=== PATIENT | male | born 1945 | race Caucasian/White ===

== ENCOUNTER 2016-09-08 05:31 | Day surgery (SDC) | payer MEDICARE, BC ==
[2016-09-07 09:39] VITALS: BP 151/67
[~2016-09-08] VITALS: Ht 165.1 cm; Wt 60.0 kg
[~2016-09-08 05:31] MED LIST: AMIO200T42 PO; ASPI-496 PO; ASPI-621 PO; ATOR40TA78 PO; CEFD300C2 PO; CLOP75TA PO; LISI-167 PO; LISI5TAB7 PO; METO-93 PO; METO25TA35 PO; NICO1PAT4 TD; NICO1PAT5 TD; TAMS-11 PO
[2016-09-08] MEDS ORDERED: LACTATED RINGERS 1,000 ML IV SCH (06:15)
[2016-09-08 06:16] VITALS: BP 151/67
== END 2016-09-08 08:15 | disposition home or self-care (01) ==
LOC: OUT 05:31
PROVIDERS: ATTEND Urology
DX: Z02.9 Encounter for administrative examinations, unspecified (principal)

== ENCOUNTER 2016-09-15 11:03 | Inpatient (IN) | payer BC, MEDICARE ==
[~2016-09-15] VITALS: Ht 165.1 cm; Wt 61.0 kg
[2016-09-15] MEDS ORDERED: LACTATED RINGERS 1,000 ML IV SCH (12:13)
[2016-09-15 12:24] VITALS: BP 111/61
[2016-09-15] MEDS ORDERED: SULF1TAB24 PO (12:24)
[2016-09-15] MEDS ORDERED: FENTANYL PF 250 MCG/5ML ONE (14:51)
[2016-09-15] MEDS ORDERED: CEFAZOLIN PMX 2GM/100ML 100 ML IV STA (14:56)
[2016-09-15] MEDS ORDERED: GENTAMICIN PER PHARMACY MC PRN (15:00)
[2016-09-15] MEDS ORDERED: GENTAMICIN 140 MG in SODIUM CHLORIDE 0.9% 50 ML IV ONE (15:30)
[2016-09-15] MEDS ORDERED: EPHEDRINE 50 MG/ML, 1ML ONE (15:43)
[2016-09-15] MEDS ORDERED: GENTAMICIN 80 MG/2 ML ONE (15:43)
[2016-09-15] MEDS ORDERED: ONDANSETRON 2MG/ML, 2ML ONE (15:43)
[2016-09-15] MEDS ORDERED: PHENYLEPHRINE 10 MG/ML ONE (15:43)
[2016-09-15] MEDS ORDERED: PROPOFOL 10 MG/ML, 20ML ONE (15:43)
[2016-09-15] MEDS ORDERED: DEXAMETHASONE 4 MG/ML, 1ML ONE (15:43)
[2016-09-15] MEDS ORDERED: ACETAMINOPHEN 325 MG TABLET PO PRN (18:00)
[2016-09-15] MEDS ORDERED: HYDROmorphone 1 MG/ML, 1ML IV PRN (18:00)
[2016-09-15] MEDS ORDERED: LABETALOL 5MG/ML, 20ML IV PRN (18:00)
[2016-09-15] MEDS ORDERED: FENTANYL PF 100 MCG/2ML IV PRN (18:00)
[2016-09-15] MEDS ORDERED: PROMETHAZINE 25 MG/ML, 1ML IV PRN (18:00)
[2016-09-15] MEDS ORDERED: ONDANSETRON 2MG/ML, 2ML IVPush PRN (18:00)
[2016-09-15] MEDS ORDERED: hydrALAzine 20 MG/ML, 1ML IV PRN (18:00)
[2016-09-15] MEDS ORDERED: OXYcodone 5 MG/5 ML ORAL.SOL UDC PO PRN (18:00)
[2016-09-15 19:13] VITALS: BP 110/71
[2016-09-15] MEDS ORDERED: OXYcodone/APAP 5/325MG TABLET PO PRN (19:30)
[2016-09-15] MEDS ORDERED: OPIUM/BELLADONNA SUPP.RECT 16.2-60 MG PR PRN (19:30)
[2016-09-15] MEDS ORDERED: MORPHINE SULFATE 4 MG/ML, 1ML IV PRN (19:30)
[2016-09-15] MEDS: LACTATED RINGERS 1,000 ML IV SCH (21:53)
[2016-09-15] MEDS: ATORVASTATIN 40 MG TABLET PO SCH (21:53)
[2016-09-15] MEDS: SULFAMETH./TRIMETHOPRIM DS 800MG/160MG TABLET PO SCH (21:53)
[2016-09-15 23:07] VITALS: BP 118/66
[2016-09-16] MEDS: GENTAMICIN 80 MG in SODIUM CHLORIDE 0.9% 48 ML IV SCH ×2 (00:53→08:29)
[2016-09-16 04:07] VITALS: BP 108/54
[2016-09-16] MEDS: ONDANSETRON 2MG/ML, 2ML IV PRN ×2 (05:27→12:34)
[2016-09-16] MEDS: METOPROLOL SUCCINATE 50 MG TAB.ER.24H PO SCH (06:44)
[2016-09-16] MEDS: LACTATED RINGERS 1,000 ML IV SCH ×3 (06:45→22:14)
[2016-09-16 07:50] VITALS: BP 104/55
[2016-09-16] MEDS: SULFAMETH./TRIMETHOPRIM DS 800MG/160MG TABLET PO SCH ×2 (08:29→22:13)
[2016-09-16] MEDS: LISINOPRIL 5 MG TABLET PO SCH (08:30)
[2016-09-16] MEDS: AMIODARONE 200 MG TABLET PO SCH (08:30)
[2016-09-16] MEDS: IBUPROFEN 200 MG TABLET PO PRN ×2 (09:06→15:55)
[2016-09-16] MEDS ORDERED: OXYC-302 PO (13:24)
[2016-09-16 13:26] VITALS: BP 112/67
[2016-09-16 18:51] VITALS: BP 112/67
[2016-09-16] MEDS ORDERED: ONDANSETRON 2MG/ML, 2ML IV PRN (19:30)
[2016-09-16] MEDS: ATORVASTATIN 40 MG TABLET PO SCH (22:13)
[2016-09-17 02:16] VITALS: BP 93/59
[2016-09-17] MEDS: LACTATED RINGERS 1,000 ML IV SCH (03:30)
[2016-09-17] MEDS: METOPROLOL SUCCINATE 50 MG TAB.ER.24H PO SCH (06:00)
[2016-09-17 07:15] VITALS: BP 110/60
[2016-09-17] MEDS: SULFAMETH./TRIMETHOPRIM DS 800MG/160MG TABLET PO SCH (08:50)
[2016-09-17] MEDS: AMIODARONE 200 MG TABLET PO SCH (08:51)
[2016-09-17] MEDS: LISINOPRIL 5 MG TABLET PO SCH (08:51)
== END 2016-09-17 10:52 | disposition home or self-care (01) | DRG 714 ==
LOC: OUT 11:03 → 4NOR 18:39 → OUT 18:46 → 4NOR 18:46
PROVIDERS: ADMIT Urology; ATTEND Urology
PROC: 0VB08ZZ Excision of Prostate, Via Natural or Artificial Opening Endoscopic (ICD-10-PCS; 2016-09-15)
PROC: 0WCR8ZZ Extirpation of Matter from Genitourinary Tract, Via Natural or Artificial Opening Endoscopic (ICD-10-PCS; 2016-09-15)
PROC: 0T9B70Z Drainage of Bladder with Drainage Device, Via Natural or Artificial Opening (ICD-10-PCS; 2016-09-15)
PROC: 0W923ZZ Drainage of Face, Percutaneous Approach (ICD-10-PCS; principal; 2016-09-15 15:30)
DX: N40.1 Benign prostatic hyperplasia with lower urinary tract symptoms (principal); L72.3 Sebaceous cyst; I10 Essential (primary) hypertension; Z95.810 Presence of automatic (implantable) cardiac defibrillator; E78.5 Hyperlipidemia, unspecified; I25.10 Atherosclerotic heart disease of native coronary artery without angina pectoris; I25.5 Ischemic cardiomyopathy
CPT/HCPCS: 81001; 82360; 87015; 87070; 87075; 87077; 87086; 87102; 87116; 87186; 87205; 87206; 88300; 88305; J1100; J2405; J2704; J3010; J1580; J2370; J7120

== ENCOUNTER → 2017-11-12 | Outpatient (CLI) | payer MEDICARE, BC ==
[~2017-11-12] MED LIST changes: -CEFD300C2 PO; +CEFD300C37 PO; +NICO-486 TD; +NICO-487 TD; -NICO1PAT4 TD; -NICO1PAT5 TD; +OXYC-302 PO; +SULF1TAB24 PO
== END | disposition home or self-care (01) ==
LOC: ROC 15:00
PROVIDERS: ATTEND Radiology Radiation Oncology
DX: Z08 Encounter for follow-up examination after completed treatment for malignant neoplasm (principal); C61 Malignant neoplasm of prostate; F17.210 Nicotine dependence, cigarettes, uncomplicated
CPT/HCPCS: G0463

== ENCOUNTER → 2017-12-07 | Outpatient (CLI) | payer MEDICARE, BC ==
[~2017-12-07] MED LIST changes: +FENTANYL PF 100 MCG/2ML IVPush ONE; +LIDOCAINE/PF 1%, 30ML IV ONE; +MIDAZOLAM 1 MG/ML, 5ML IVPush ONE
== END | disposition home or self-care (01) ==
LOC: ROC 07:31
PROVIDERS: ATTEND Radiology Radiation Oncology
DX: Z51.0 Encounter for antineoplastic radiation therapy (principal); C61 Malignant neoplasm of prostate
CPT/HCPCS: 76942; 77332; 99156; A4648; J2250; J3010; J3490

== ENCOUNTER → 2018-03-28 | Outpatient (CLI) | payer MEDICARE, BC ==
[~2018-03-28] MED LIST changes: -FENTANYL PF 100 MCG/2ML IVPush ONE; -LIDOCAINE/PF 1%, 30ML IV ONE; -MIDAZOLAM 1 MG/ML, 5ML IVPush ONE
== END | disposition home or self-care (01) ==
LOC: ROC 08:36
PROVIDERS: ATTEND Radiology Radiation Oncology
DX: Z08 Encounter for follow-up examination after completed treatment for malignant neoplasm (principal); C61 Malignant neoplasm of prostate
CPT/HCPCS: G0463

== ENCOUNTER 2018-10-27 07:46 | Inpatient (IN) | payer BC, MEDICARE ==
[~2018-10-27] VITALS: Ht 167.6 cm; Wt 64.2 kg
[~2018-10-27 07:46] MED LIST changes: -ASPI-621 PO; +ASPI81TA45 PO; +BACITRACIN 50,000 UNIT ONE; +CLOP75TA52 PO; +HEPARIN 1,000 UNITS/ML, 30ML ONE; +HEPARIN 5,000 UNITS/ML, 1ML ONE; +LOSA25TA25 PO; +PROTAMINE SULFATE 10 MG/ML, 5ML ONE; +SPIR25TA5 PO; +SULF-16 PO; +THROMBIN 20,000 UNIT VIAL TP ONE
[2018-10-27] MEDS ORDERED: LACTATED RINGERS 1,000 ML IV SCH (08:35)
[2018-10-27 09:09] VITALS: BP 101/62
[2018-10-27] MEDS ORDERED: FUROSEMIDE 20 MG/2 ML ONE (09:21)
[2018-10-27] MEDS ORDERED: OXYcodone 5 MG/5 ML ORAL.SOL UDC PO PRN (09:30)
[2018-10-27] MEDS ORDERED: ONDANSETRON 2MG/ML, 2ML IV PRN (09:30)
[2018-10-27] MEDS ORDERED: ACETAMINOPHEN 325 MG TABLET PO PRN (09:30)
[2018-10-27] MEDS ORDERED: hydrALAzine 20 MG/ML, 1ML IV PRN (09:30)
[2018-10-27] MEDS ORDERED: LABETALOL 5MG/ML, 20ML IV PRN (09:30)
[2018-10-27] MEDS ORDERED: ONDANSETRON ODT 8 MG PO PRN (09:30)
[2018-10-27] MEDS ORDERED: PROMETHAZINE 25 MG/ML, 1ML IV PRN (09:30)
[2018-10-27] MEDS ORDERED: HEPARIN 1,000 UNITS/ML, 10ML ONE (09:44)
[2018-10-27] MEDS ORDERED: NITROGLYCERIN 5 MG/ML, 10ML ONE (09:46)
[2018-10-27] MEDS ORDERED: FENTANYL PF 250 MCG/5ML ONE (09:57)
[2018-10-27] MEDS ORDERED: PHENYLEPHRINE 10 MG/ML ONE (10:09)
[2018-10-27] MEDS ORDERED: SODIUM BICARB 8.4%, 50ML SYRINGE ONE (10:09)
[2018-10-27] MEDS ORDERED: EPHEDRINE 50 MG/ML, 1ML ONE (10:09)
[2018-10-27] MEDS ORDERED: NEOSTIGMINE 1 MG/ML, 10ML ONE (11:54)
[2018-10-27] MEDS ORDERED: DEXAMETHASONE 4 MG/ML, 1ML ONE (11:54)
[2018-10-27] MEDS ORDERED: ONDANSETRON 2MG/ML, 2ML ONE ×2 (11:54→15:31)
[2018-10-27] MEDS ORDERED: SUGAMMADEX 200 MG/2 ML IVPush ONE (11:54)
[2018-10-27] MEDS ORDERED: SUCCINYLCHOLINE 20 MG/ML, 10ML ONE (11:54)
[2018-10-27] MEDS ORDERED: ROCURONIUM 10MG/ML,5ML ONE (11:54)
[2018-10-27] MEDS ORDERED: PROPOFOL 10 MG/ML, 20ML ONE (11:54)
[2018-10-27] MEDS ORDERED: CEFAZOLIN 1,000 MG ONE (11:54)
[2018-10-27] MEDS ORDERED: GLYCOPYRROLATE 0.2MG/1ML, 5ML ONE (11:54)
[2018-10-27] MEDS ORDERED: FENTANYL PF 100 MCG/2ML ONE (12:36)
[2018-10-27] MEDS: FENTANYL PF 100 MCG/2ML IV PRN ×2 (12:40→12:54)
[2018-10-27 12:50] LABS: MEAN CORPUSCULAR HEMOGLOBIN 31.9 pg (27.5-34.5); MEAN CORPUSCULAR HGB CONC 32.9 g/dL (33.2-36.2); MEAN CORPUSCULAR VOLUME 97.1 fL (81-97); MEAN PLATELET VOLUME 7.8 fL (7.4-10.4); PLATELET COUNT 179 x10^3/uL (130-400); RED BLOOD COUNT 4.24 x10^6/uL (4.38-5.82); RED CELL DISTRIBUTION WIDTH 14.1 % (9.4-14.8)
[2018-10-27] MEDS ORDERED: HYDROmorphone 2 MG/ML, 1ML ONE (12:56)
[2018-10-27] MEDS: HYDROmorphone 2 MG/ML, 1ML IVPush PRN ×5 (12:58→13:33)
[2018-10-27 13:17] LABS: MD YES
[2018-10-27 13:19] LABS: BAND#(MANUAL) 2.02 x10^3/uL; BANDS%(MANUAL) 7 % (0-7); EOS#(MANUAL) 0.58 x10^3/uL (0.0-0.4); EOS% (MANUAL) 2 % (1-7); LYMPH#(MANUAL) 0.58 x10^3/uL (1-3.4); LYMPHS% (MANUAL) 2 % (22-44); MONOS#(MANUAL) 2.02 x10^3/uL (0.3-2.7); MONOS% (MANUAL) 7 % (2-9); SEG#(MANUAL) 23.62 x10^3/uL (1.8-6.8); SEGS% (MANUAL) 82 % (42-75)
[2018-10-27 13:20] LABS: <PLATELET ESTIMATE> ADEQUATE; <PLT MORPHOLOGY> NORMAL PLT MORPH; <RBC MORPHOLOGY> NORMAL
[2018-10-27] MEDS ORDERED: POTASSIUM CHLORIDE 20 MEQ in LACTATED RINGERS 1,000 ML IV SCH (14:30)
[2018-10-27] MEDS: morphine SULFATE 10 MG/ML, 1ML IV PRN ×3 (15:24→23:57)
[2018-10-27] MEDS: ONDANSETRON 2MG/ML, 2ML IVPush PRN (15:33)
[2018-10-27] MEDS: CEFAZOLIN PMX 1GM/50ML 50 ML IVPB SCH (18:26)
[2018-10-27 18:28] LABS: ALANINE AMINOTRANSFERASE 17 U/L (12-78); ANION GAP 8 mmol/L (5-15); CALCIUM 7.9 mg/dL (8.5-10.1); CHLORIDE 109 mmol/L (98-107); CREATININE 1.54 mg/dL (0.7-1.3)
[2018-10-27 18:29] LABS: ALKALINE PHOSPHATASE 73 U/L (45-117); BILIRUBIN,TOTAL 0.3 mg/dL (0.2-1.0); TOTAL PROTEIN 6.1 g/dL (6.4-8.2)
[2018-10-27] MEDS: ATORVASTATIN 40 MG TABLET PO SCH (20:42)
[2018-10-27] MEDS: SULFAMETH./TRIMETHOPRIM SS 400MG/80MG TABLET PO SCH (20:42)
[2018-10-27] MEDS ORDERED: PROCHLORPERAZINE 5 MG/ML, 2ML IVPush PRN (21:00)
[2018-10-27] MEDS: LACTATED RINGERS 1,000 ML IV SCH (21:13)
[2018-10-28] MEDS: CEFAZOLIN PMX 1GM/50ML 50 ML IVPB SCH (02:03)
[2018-10-28] MEDS: morphine SULFATE 10 MG/ML, 1ML IV PRN (02:31)
[2018-10-28 04:00] VITALS: BP 109/51
[2018-10-28] MEDS: LACTATED RINGERS 1,000 ML IV SCH ×3 (05:12→22:17)
[2018-10-28 05:21] LABS: MEAN CORPUSCULAR HEMOGLOBIN 31.7 pg (27.5-34.5); MEAN CORPUSCULAR HGB CONC 32.6 g/dL (33.2-36.2); MEAN CORPUSCULAR VOLUME 97.3 fL (81-97); MEAN PLATELET VOLUME 8.5 fL (7.4-10.4); PLATELET COUNT 194 x10^3/uL (130-400); RED BLOOD COUNT 4.29 x10^6/uL (4.38-5.82); RED CELL DISTRIBUTION WIDTH 13.6 % (9.4-14.8)
[2018-10-28] MEDS: ONDANSETRON 2MG/ML, 2ML IVPush PRN ×2 (05:25→14:39)
[2018-10-28 05:26] LABS: ANION GAP 4 mmol/L (5-15); CALCIUM 8.2 mg/dL (8.5-10.1); CHLORIDE 109 mmol/L (98-107)
[2018-10-28 05:27] LABS: CREATININE 1.38 mg/dL (0.7-1.3)
[2018-10-28 05:41] LABS: BASOPHILS # (AUTO) 0.31 x10^3/uL (0-0.1); BASOPHILS % (AUTO) 1 % (0-1); EOSINOPHILS # (AUTO) 0.04 x10^3/uL (0-0.4); EOSINOPHILS % (AUTO) 0 % (1-7); LYMPHOCYTES % (AUTO) 2 % (22-44); MD SCAN; MONOCYTES # (AUTO) 1.81 x10^3/uL (0.2-0.8); MONOCYTES % (AUTO) 7 % (2-9); NEUTROPHILS # (AUTO) 24.96 x10^3/uL (1.8-6.8); NEUTROPHILS % (AUTO) 90 % (42-75)
[2018-10-28] MEDS ORDERED: METOPROLOL SUCCINATE 50 MG TAB.ER.24H PO SCH (06:00)
[2018-10-28] MEDS ORDERED: HYDROmorphone 2 MG/ML, 1ML IVPush PRN (06:00)
[2018-10-28] MEDS: ENOXAPARIN 40 MG/0.4 ML SQ SCH (06:35)
[2018-10-28] MEDS ORDERED: LOSARTAN 25MG TABLET PO SCH (09:00)
[2018-10-28] MEDS: SPIRONOLACTONE 25 MG TABLET PO SCH (10:14)
[2018-10-28] MEDS: SULFAMETH./TRIMETHOPRIM SS 400MG/80MG TABLET PO SCH ×2 (10:14→22:17)
[2018-10-28] MEDS: AMIODARONE 200 MG TABLET PO SCH (10:15)
[2018-10-28] MEDS: HYDROmorphone 2 MG/ML, 1ML IVPush PRN ×3 (11:53→22:40)
[2018-10-28] MEDS ORDERED: PROCHLORPERAZINE 5 MG/ML, 2ML IVPush PRN (19:00)
[2018-10-28] MEDS: CALCIUM CARBONATE 500 MG TAB.CHEW PO SCH (19:51)
[2018-10-28 20:59] LABS: ANION GAP 7 mmol/L (5-15); CALCIUM 8.3 mg/dL (8.5-10.1); CHLORIDE 107 mmol/L (98-107); CREATININE 1.05 mg/dL (0.7-1.3)
[2018-10-28 21:03] LABS: TROPONIN I < 0.015 ng/mL (0.000-0.045)
[2018-10-28] MEDS ORDERED: CALCIUM CHLORIDE 10%, 10ML SYR IVPush ONE (22:00)
[2018-10-28] MEDS: ATORVASTATIN 40 MG TABLET PO SCH (22:17)
[2018-10-28 23:13] LABS: CULTURE INDICATED? YES; MICROSCOPIC INDICATED
[2018-10-28] MEDS ORDERED: CALCIUM GLUCONATE 4.6 MEQ in SODIUM CHLORIDE 0.9% 50 ML IV ONE (23:30)
[2018-10-29] MEDS: FAMOTIDINE 20 MG TABLET PO SCH ×3 (02:59→21:46)
[2018-10-29] MEDS: HYDROmorphone 2 MG/ML, 1ML IVPush PRN (03:07)
[2018-10-29 04:00] VITALS: BP 115/47
[2018-10-29 05:16] LABS: MEAN CORPUSCULAR HEMOGLOBIN 31.3 pg (27.5-34.5); MEAN CORPUSCULAR HGB CONC 31.9 g/dL (33.2-36.2); MEAN CORPUSCULAR VOLUME 98.2 fL (81-97); MEAN PLATELET VOLUME 8.2 fL (7.4-10.4); PLATELET COUNT 158 x10^3/uL (130-400); RED CELL DISTRIBUTION WIDTH 13.8 % (9.4-14.8)
[2018-10-29 05:27] LABS: ALANINE AMINOTRANSFERASE 14 U/L (12-78); ALBUMIN 2.6 g/dL (3.4-5.0); ANION GAP 4 mmol/L (5-15); CALCIUM 8.9 mg/dL (8.5-10.1); CHLORIDE 108 mmol/L (98-107); CREATININE 0.84 mg/dL (0.7-1.3)
[2018-10-29 05:35] LABS: ALKALINE PHOSPHATASE 63 U/L (45-117); BILIRUBIN,TOTAL 0.4 mg/dL (0.2-1.0); TOTAL PROTEIN 5.7 g/dL (6.4-8.2)
[2018-10-29 06:15] LABS: MD YES
[2018-10-29 06:19] LABS: LYMPH#(MANUAL) 2.38 x10^3/uL (1-3.4); LYMPHS% (MANUAL) 8 % (22-44); MONOS#(MANUAL) 1.79 x10^3/uL (0.3-2.7); MONOS% (MANUAL) 6 % (2-9); SEG#(MANUAL) 25.63 x10^3/uL (1.8-6.8); SEGS% (MANUAL) 86 % (42-75)
[2018-10-29 06:20] LABS: <RBC MORPHOLOGY> NORMAL
[2018-10-29 06:21] LABS: <PLATELET ESTIMATE> ADEQUATE; <PLT MORPHOLOGY> NORMAL PLT MORPH
[2018-10-29] MEDS: METOPROLOL SUCCINATE 50 MG TAB.ER.24H PO SCH (06:39)
[2018-10-29] MEDS: CALCIUM CARBONATE 500 MG TAB.CHEW PO SCH ×4 (06:40→21:49)
[2018-10-29] MEDS: ENOXAPARIN 40 MG/0.4 ML SQ SCH (06:40)
[2018-10-29] MEDS ORDERED: CALCIUM GLUCONATE IV ONE (07:00)
[2018-10-29] MEDS ORDERED: SODIUM CHLORIDE 0.9% IV ONE (07:00)
[2018-10-29] MEDS ORDERED: MAGNESIUM SULFATE PMX 2GM/50ML 50 ML IV ONE (07:00)
[2018-10-29] MEDS ORDERED: OXYcodone IR 5MG TABLET PO PRN (08:00)
[2018-10-29] MEDS: SPIRONOLACTONE 25 MG TABLET PO SCH (09:51)
[2018-10-29] MEDS: AMIODARONE 200 MG TABLET PO SCH (09:52)
[2018-10-29] MEDS: LOSARTAN 25MG TABLET PO SCH (09:52)
[2018-10-29] MEDS: SULFAMETH./TRIMETHOPRIM SS 400MG/80MG TABLET PO SCH ×2 (09:53→21:46)
[2018-10-29 13:28] VITALS: BP 120/63
[2018-10-29 19:12] VITALS: BP 128/60
[2018-10-29] MEDS: ATORVASTATIN 40 MG TABLET PO SCH (21:46)
[2018-10-30 00:18] VITALS: BP 131/61
[2018-10-30 02:41] VITALS: BP 114/51
[2018-10-30] MEDS: METOPROLOL SUCCINATE 50 MG TAB.ER.24H PO SCH (05:12)
[2018-10-30] MEDS: ENOXAPARIN 40 MG/0.4 ML SQ SCH (05:13)
[2018-10-30] MEDS: CALCIUM CARBONATE 500 MG TAB.CHEW PO SCH ×4 (05:18→22:10)
[2018-10-30 05:19] LABS: CHLORIDE 107 mmol/L (98-107)
[2018-10-30 05:24] LABS: ANION GAP 5 mmol/L (5-15); CALCIUM 8.7 mg/dL (8.5-10.1); CREATININE 0.88 mg/dL (0.7-1.3)
[2018-10-30 07:44] VITALS: BP 128/67
[2018-10-30] MEDS: SULFAMETH./TRIMETHOPRIM SS 400MG/80MG TABLET PO SCH ×2 (09:00→22:10)
[2018-10-30] MEDS: FAMOTIDINE 20 MG TABLET PO SCH ×2 (09:01→22:10)
[2018-10-30] MEDS: LOSARTAN 25MG TABLET PO SCH (09:01)
[2018-10-30] MEDS: SPIRONOLACTONE 25 MG TABLET PO SCH (09:01)
[2018-10-30] MEDS: AMIODARONE 200 MG TABLET PO SCH (09:01)
[2018-10-30] MEDS: PSYLLIUM PACKET PO SCH (11:10)
[2018-10-30 12:08] VITALS: BP 137/72
[2018-10-30 19:24] VITALS: BP 137/69
[2018-10-30] MEDS: ATORVASTATIN 40 MG TABLET PO SCH (22:10)
[2018-10-31 00:45] VITALS: BP 137/72
[2018-10-31 05:27] VITALS: BP 123/64
[2018-10-31] MEDS: CALCIUM CARBONATE 500 MG TAB.CHEW PO SCH ×3 (05:28→16:33)
[2018-10-31] MEDS: METOPROLOL SUCCINATE 50 MG TAB.ER.24H PO SCH (05:28)
[2018-10-31] MEDS: ENOXAPARIN 40 MG/0.4 ML SQ SCH (05:28)
[2018-10-31 06:59] VITALS: BP 133/72
[2018-10-31] MEDS ORDERED: MAGNESIUM HYDROXIDE 8%, 30ML UDC PO ONE (08:00)
[2018-10-31] MEDS: SULFAMETH./TRIMETHOPRIM SS 400MG/80MG TABLET PO SCH (08:46)
[2018-10-31] MEDS: LOSARTAN 25MG TABLET PO SCH (08:47)
[2018-10-31] MEDS: SPIRONOLACTONE 25 MG TABLET PO SCH (08:48)
[2018-10-31] MEDS: AMIODARONE 200 MG TABLET PO SCH (08:50)
[2018-10-31] MEDS: FAMOTIDINE 20 MG TABLET PO SCH (08:50)
[2018-10-31] MEDS: PSYLLIUM PACKET PO SCH (08:51)
[2018-10-31] MEDS ORDERED: TRAM50TA2 PO (09:22)
[2018-10-31 14:00] VITALS: BP 130/70
== END 2018-10-31 17:33 | disposition home or self-care (01) | DRG 268 ==
LOC: ORIP 07:46 → CCU 13:35 → 5SO 10-29 13:34
PROVIDERS: ADMIT Surgery; ATTEND Surgery
PROC: 02HV33Z Insertion of Infusion Device into Superior Vena Cava, Percutaneous Approach (ICD-10-PCS; 2018-10-27)
PROC: B548ZZA Ultrasonography of Superior Vena Cava, Guidance (ICD-10-PCS; 2018-10-27)
PROC: 03HY32Z Insertion of Monitoring Device into Upper Artery, Percutaneous Approach (ICD-10-PCS; 2018-10-27)
PROC: 04V03DZ Restriction of Abdominal Aorta with Intraluminal Device, Percutaneous Approach (ICD-10-PCS; principal; 2018-10-27 10:00)
PROC: 0T9B70Z Drainage of Bladder with Drainage Device, Via Natural or Artificial Opening (ICD-10-PCS; 2018-10-28)
DX: I71.4 Abdominal aortic aneurysm, without rupture (principal); G92 Toxic encephalopathy; N17.0 Acute kidney failure with tubular necrosis; D68.69 Other thrombophilia; I50.42 Chronic combined systolic (congestive) and diastolic (congestive) heart failure; I47.2 Ventricular tachycardia; N39.0 Urinary tract infection, site not specified; E78.5 Hyperlipidemia, unspecified; T42.75XA Adverse effect of unspecified antiepileptic and sedative-hypnotic drugs, initial encounter; Y92.89 Other specified places as the place of occurrence of the external cause; R73.9 Hyperglycemia, unspecified; D63.8 Anemia in other chronic diseases classified elsewhere; F17.210 Nicotine dependence, cigarettes, uncomplicated; I11.0 Hypertensive heart disease with heart failure; Z82.49 Family history of ischemic heart disease and other diseases of the circulatory system; I25.10 Atherosclerotic heart disease of native coronary artery without angina pectoris; I25.5 Ischemic cardiomyopathy; I48.2 Chronic atrial fibrillation; J44.9 Chronic obstructive pulmonary disease, unspecified; N40.0 Benign prostatic hyperplasia without lower urinary tract symptoms; Z86.79 Personal history of other diseases of the circulatory system; Z95.810 Presence of automatic (implantable) cardiac defibrillator; Z95.5 Presence of coronary angioplasty implant and graft; Z88.6 Allergy status to analgesic agent
CPT/HCPCS: 36415; 71045; 80048; 80053; 81001; 82040; 82330; 83735; 83970; 84100; 84132; 84484; 85025; 86850; 86900; 86923; 87040; 87081; 87086; 87106; 93005; G0378; J0610; J0690; J1100; J1170; J1644; J1650; J2405; J2704; J2710; J2720; J3010; J3480; C1768; J0330; J0780; J1940; J2270; J2370; J3475; J7120

== ENCOUNTER 2019-01-16 12:03 | Day surgery (SDC) | payer BC, MEDICARE ==
[~2019-01-16] VITALS: Ht 167.6 cm; Wt 56.3 kg
[2019-01-16 13:42] VITALS: BP 102/66
== END 2019-01-16 19:14 | disposition home or self-care (01) ==
LOC: OUT 12:03 → 4NOR 18:00 → OUT 19:14
PROVIDERS: ATTEND Urology
DX: N30.00 Acute cystitis without hematuria (principal); N30.20 Other chronic cystitis without hematuria; N32.3 Diverticulum of bladder; I11.0 Hypertensive heart disease with heart failure; I50.9 Heart failure, unspecified; I25.10 Atherosclerotic heart disease of native coronary artery without angina pectoris; I25.5 Ischemic cardiomyopathy; J44.9 Chronic obstructive pulmonary disease, unspecified; I48.2 Chronic atrial fibrillation; Z85.46 Personal history of malignant neoplasm of prostate; Z92.3 Personal history of irradiation; Z95.810 Presence of automatic (implantable) cardiac defibrillator
CPT/HCPCS: 52234; 88307; J0330; J0690; J1100; J2405; J2704; J3010; J7120; G0378; J2710

== ENCOUNTER 2019-10-14 12:35 | Inpatient (IN) | payer BC, MEDICARE ==
[~2019-10-14] VITALS: Ht 167.6 cm; Wt 62.0 kg
[~2019-10-14 12:35] MED LIST changes: -BACITRACIN 50,000 UNIT ONE; -HEPARIN 1,000 UNITS/ML, 30ML ONE; -HEPARIN 5,000 UNITS/ML, 1ML ONE; -PROTAMINE SULFATE 10 MG/ML, 5ML ONE; -THROMBIN 20,000 UNIT VIAL TP ONE; +TRAM50TA2 PO
--- NOTE | 2019-10-14 12:55 | NUR ---
THIS IS A 74 YO M BIB EMS FOR WITNESSED SYNCOPAL EPISODE WHILE CUTTING DOWN TREE IN [place]. PT STATES HE LANDED ON DIRT, DOES NOT KNOW IF HE HIT HIS HEAD. PTS PACEMAKER FIRED FOR THE FIRST TIME SINCE BEING PLACED IN 2016. HX MIX2, AAA, HTN. PTS BP EQUAL BILATERALLY. VSS, RESP EVEN AND UNLABORED, NADN. PT RESTING ON fitogramRNEY W/ CALL LIGHT IN REACH AND SIDE RAILS UPX2. PT CONNECTED TO MONITORING.
--- NOTE | 2019-10-14 13:24 | NUR ---
DERIAN POE IN ROOM FOR [facility] INTEROGATION.
[2019-10-14] MEDS ORDERED: SODIUM CHLORIDE FLUSH 10ML SYR IVF ONE (13:30)
--- NOTE | 2019-10-14 13:34 | NUR ---
MED REC DONE.
--- NOTE | 2019-10-14 13:41 | NUR ---
ACCORDING TO [facility] REPORT, ON OCTOBER 13 @ 0933 PT HAD EPISODE OF VT WHICH HE RECEIVED ATP AND 36J, @ 0934 PT WENT INTO [facility] AND RECEIVED ATP AND ANOTHER 36J.
[2019-10-14 13:43] LABS: BASOPHILS # (AUTO) 0.03 x10^3/uL (0-0.1); BASOPHILS % (AUTO) 0 % (0-1); EOSINOPHILS # (AUTO) 0.06 x10^3/uL (0-0.4); EOSINOPHILS % (AUTO) 1 % (1-7); LYMPHOCYTES % (AUTO) 4 % (22-44); MD NO; MEAN CORPUSCULAR HEMOGLOBIN 31.7 pg (27.5-34.5); MEAN CORPUSCULAR VOLUME 95.9 fL (81-97); MEAN PLATELET VOLUME 8.4 fL (7.4-10.4); MONOCYTES # (AUTO) 0.34 x10^3/uL (0.2-0.8); MONOCYTES % (AUTO) 3 % (2-9); NEUTROPHILS # (AUTO) 11.69 x10^3/uL (1.8-6.8); NEUTROPHILS % (AUTO) 93 % (42-75); PLATELET COUNT 180 x10^3/uL (130-400); RED BLOOD COUNT 4.69 x10^6/uL (4.38-5.82); RED CELL DISTRIBUTION WIDTH 13.9 % (9.4-14.8)
[2019-10-14 13:53] LABS: ALANINE AMINOTRANSFERASE 18 U/L (12-78); ANION GAP 5 mmol/L (5-15); CALCIUM 9.2 mg/dL (8.5-10.1); CHLORIDE 107 mmol/L (98-107); CREATININE 1.31 mg/dL (0.7-1.3)
[2019-10-14 13:57] LABS: ALKALINE PHOSPHATASE 82 U/L (45-117); BILIRUBIN,TOTAL 0.7 mg/dL (0.2-1.0); TOTAL PROTEIN 7.5 g/dL (6.4-8.2)
[2019-10-14] MEDS ORDERED: FILTER 0.22 MICRON FOR AMIODARONE IV PRN (14:00)
[2019-10-14] MEDS ORDERED: AMIODARONE 150 MG in DEXTROSE 5% 100 ML IV ONE (14:00)
--- NOTE | 2019-10-14 14:36 | NUR ---
REPORT GIVEN TO RACHEL POE. PT IS READY FOR TRANSPORT AT THIS TIME.
--- NOTE | 2019-10-14 14:51 | NUR ---
ADMITTING PROVIDER IN ROOM FOR EVAL.
[2019-10-14 15:23] VITALS: BP 106/60
[2019-10-14] MEDS: HEPARIN 5,000 UNITS/ML, 1ML SQ SCH ×2 (15:30→23:11)
[2019-10-14] MEDS ORDERED: ONDANSETRON 2MG/ML, 2ML IVPush PRN (15:30)
[2019-10-14] MEDS ORDERED: DOCUSATE 100 MG CAPSULE PO PRN (15:30)
[2019-10-14] MEDS ORDERED: POLYETHYLENE GLYCOL 17 GM PACKET PO PRN (15:30)
[2019-10-14 16:47] LABS: MICROSCOPIC INDICATED
[2019-10-14 20:28] VITALS: BP 109/62
[2019-10-14] MEDS: ATORVASTATIN 40 MG TABLET PO SCH (20:34)
[2019-10-14] MEDS: ONDANSETRON ODT 4 MG PO PRN (23:10)
[2019-10-15 00:34] VITALS: BP 109/68
[2019-10-15 06:08] LABS: ANION GAP 6 mmol/L (5-15); CALCIUM 8.6 mg/dL (8.5-10.1); CHLORIDE 108 mmol/L (98-107); CREATININE 1.26 mg/dL (0.7-1.3)
[2019-10-15 06:22] LABS: BASOPHILS # (AUTO) 0.06 x10^3/uL (0-0.1); BASOPHILS % (AUTO) 1 % (0-1); EOSINOPHILS # (AUTO) 0.21 x10^3/uL (0-0.4); EOSINOPHILS % (AUTO) 2 % (1-7); LYMPHOCYTES # (AUTO) 1.41 x10^3/uL (1-3.4); LYMPHOCYTES % (AUTO) 14 % (22-44); MD NO; MEAN CORPUSCULAR HEMOGLOBIN 31.5 pg (27.5-34.5); MEAN CORPUSCULAR HGB CONC 32.8 g/dL (33.2-36.2); MEAN CORPUSCULAR VOLUME 95.9 fL (81-97); MEAN PLATELET VOLUME 8.8 fL (7.4-10.4); MONOCYTES # (AUTO) 0.98 x10^3/uL (0.2-0.8); MONOCYTES % (AUTO) 10 % (2-9); NEUTROPHILS # (AUTO) 7.15 x10^3/uL (1.8-6.8); NEUTROPHILS % (AUTO) 73 % (42-75); PLATELET COUNT 167 x10^3/uL (130-400); RED BLOOD COUNT 4.22 x10^6/uL (4.38-5.82); RED CELL DISTRIBUTION WIDTH 13.7 % (9.4-14.8)
[2019-10-15 07:15] VITALS: BP 120/67
[2019-10-15] MEDS: ONDANSETRON ODT 4 MG PO PRN (08:35)
[2019-10-15] MEDS: ACETAMINOPHEN 325 MG TABLET PO PRN ×2 (09:25→15:03)
[2019-10-15] MEDS ORDERED: HEPARIN 25,000 UNITS/250ML PMX 250 ML IV PRN (11:30)
[2019-10-15] MEDS: SODIUM CHLORIDE FLUSH 10ML SYR IVF SCH ×2 (11:30→21:00)
[2019-10-15] MEDS ORDERED: HEPARIN 5,000 UNITS/ML, 1ML IV ONE (11:30)
[2019-10-15] MEDS: CLOPIDOGREL 75 MG TABLET PO SCH (12:09)
[2019-10-15] MEDS: AMIODARONE 200 MG TABLET PO SCH (12:09)
[2019-10-15] MEDS: SULFAMETH./TRIMETHOPRIM SS 400MG/80MG TABLET PO SCH (12:10)
[2019-10-15] MEDS: METOPROLOL SUCCINATE 50 MG TAB.ER.24H PO SCH (12:10)
[2019-10-15] MEDS: SPIRONOLACTONE 25 MG TABLET PO SCH (12:10)
[2019-10-15 13:05] VITALS: BP 118/71
[2019-10-15] MEDS: ATORVASTATIN 40 MG TABLET PO SCH (20:15)
[2019-10-15] MEDS: HEPARIN 5,000 UNITS/ML, 1ML IV PRN (20:15)
[2019-10-15 20:21] VITALS: BP 107/64
[2019-10-16 01:42] VITALS: BP 112/61
[2019-10-16 02:55] LABS: BASOPHILS # (AUTO) 0.06 x10^3/uL (0-0.1); BASOPHILS % (AUTO) 1 % (0-1); EOSINOPHILS # (AUTO) 0.33 x10^3/uL (0-0.4); EOSINOPHILS % (AUTO) 3 % (1-7); LYMPHOCYTES # (AUTO) 1.57 x10^3/uL (1-3.4); LYMPHOCYTES % (AUTO) 16 % (22-44); MD NO; MEAN CORPUSCULAR HEMOGLOBIN 31.5 pg (27.5-34.5); MEAN CORPUSCULAR HGB CONC 32.9 g/dL (33.2-36.2); MEAN CORPUSCULAR VOLUME 95.8 fL (81-97); MONOCYTES # (AUTO) 0.97 x10^3/uL (0.2-0.8); MONOCYTES % (AUTO) 10 % (2-9); NEUTROPHILS # (AUTO) 6.99 x10^3/uL (1.8-6.8); NEUTROPHILS % (AUTO) 70 % (42-75); PLATELET COUNT 175 x10^3/uL (130-400); RED BLOOD COUNT 4.32 x10^6/uL (4.38-5.82)
[2019-10-16 03:05] LABS: ANION GAP 4 mmol/L (5-15); CALCIUM 8.3 mg/dL (8.5-10.1); CHLORIDE 109 mmol/L (98-107); CREATININE 1.12 mg/dL (0.7-1.3)
[2019-10-16] MEDS: HEPARIN 5,000 UNITS/ML, 1ML IV PRN (03:46)
[2019-10-16] MEDS ORDERED: SODIUM CHLORIDE 0.9% 1,000 ML IV SCH (06:00)
[2019-10-16 06:57] VITALS: BP 101/62
[2019-10-16] MEDS: SPIRONOLACTONE 25 MG TABLET PO SCH (08:33)
[2019-10-16] MEDS: CLOPIDOGREL 75 MG TABLET PO SCH (08:33)
[2019-10-16] MEDS: SODIUM CHLORIDE FLUSH 10ML SYR IVF SCH ×2 (08:34→20:06)
[2019-10-16] MEDS: SULFAMETH./TRIMETHOPRIM SS 400MG/80MG TABLET PO SCH (08:34)
[2019-10-16] MEDS: AMIODARONE 200 MG TABLET PO SCH (08:34)
[2019-10-16] MEDS: METOPROLOL SUCCINATE 50 MG TAB.ER.24H PO SCH (08:34)
[2019-10-16 13:01] VITALS: BP 109/69
[2019-10-16] MEDS ORDERED: FENTANYL PF 100 MCG/2ML ONE (14:29)
[2019-10-16] MEDS ORDERED: LIDOCAINE-MPF 1%, 5ML ONE (14:29)
[2019-10-16] MEDS ORDERED: MIDAZOLAM 1 MG/ML, 5ML ONE (14:29)
[2019-10-16] MEDS ORDERED: VERAPAMIL 2.5 MG/ML, 2ML ONE (14:29)
[2019-10-16] MEDS ORDERED: HEPARIN 1,000 UNITS/ML, 10ML ONE (14:29)
[2019-10-16] MEDS ORDERED: CAPTOPRIL 12.5 MG TABLET PO SCH (15:00)
[2019-10-16] MEDS: SODIUM CHLORIDE 0.9% 250 ML IV SCH ×2 (15:30→16:36)
[2019-10-16 19:09] VITALS: BP 96/61
[2019-10-16] MEDS: ATORVASTATIN 40 MG TABLET PO SCH (20:06)
[2019-10-17 01:19] VITALS: BP 93/50
[2019-10-17 05:07] LABS: ANION GAP 5 mmol/L (5-15); CALCIUM 8.2 mg/dL (8.5-10.1); CHLORIDE 111 mmol/L (98-107); CREATININE 1.12 mg/dL (0.7-1.3)
[2019-10-17 05:21] LABS: BASOPHILS # (AUTO) 0.09 x10^3/uL (0-0.1); BASOPHILS % (AUTO) 1 % (0-1); EOSINOPHILS # (AUTO) 0.34 x10^3/uL (0-0.4); EOSINOPHILS % (AUTO) 4 % (1-7); LYMPHOCYTES # (AUTO) 1.42 x10^3/uL (1-3.4); LYMPHOCYTES % (AUTO) 16 % (22-44); MD SCAN; MEAN CORPUSCULAR HEMOGLOBIN 31.8 pg (27.5-34.5); MEAN CORPUSCULAR HGB CONC 33.3 g/dL (33.2-36.2); MEAN CORPUSCULAR VOLUME 95.7 fL (81-97); MEAN PLATELET VOLUME 8.5 fL (7.4-10.4); MONOCYTES # (AUTO) 1.12 x10^3/uL (0.2-0.8); MONOCYTES % (AUTO) 12 % (2-9); NEUTROPHILS # (AUTO) 6.23 x10^3/uL (1.8-6.8); NEUTROPHILS % (AUTO) 68 % (42-75); PLATELET COUNT 150 x10^3/uL (130-400); RED BLOOD COUNT 4.08 x10^6/uL (4.38-5.82); RED CELL DISTRIBUTION WIDTH 13.9 % (9.4-14.8)
[2019-10-17 06:30] VITALS: BP 101/61
[2019-10-17] MEDS ORDERED: CAPT12.52 PO (07:53)
[2019-10-17] MEDS ORDERED: CAPTOPRIL 12.5 MG TABLET PO SCH (08:00)
[2019-10-17] MEDS: SPIRONOLACTONE 25 MG TABLET PO SCH (08:44)
[2019-10-17] MEDS: SULFAMETH./TRIMETHOPRIM SS 400MG/80MG TABLET PO SCH (08:45)
[2019-10-17] MEDS: CLOPIDOGREL 75 MG TABLET PO SCH (08:45)
[2019-10-17] MEDS: AMIODARONE 200 MG TABLET PO SCH (08:47)
[2019-10-17] MEDS: SODIUM CHLORIDE FLUSH 10ML SYR IVF SCH (08:55)
[2019-10-17] MEDS: METOPROLOL SUCCINATE 50 MG TAB.ER.24H PO SCH (09:04)
[2019-10-17 13:37] VITALS: BP 107/67
== END 2019-10-17 16:04 | disposition home or self-care (01) | DRG 280 ==
LOC: ED 13:50 → OBSVTOIN 13:51 → EDIP 13:51 → INTOOBSV 13:51 → ED 14:01 → 5SO 15:23
PROVIDERS: ADMIT Family Medicine; ATTEND Family Medicine
PROC: 4B02XTZ Measurement of Cardiac Defibrillator, External Approach (ICD-10-PCS; principal; 2019-10-14)
PROC: 4A023N7 Measurement of Cardiac Sampling and Pressure, Left Heart, Percutaneous Approach (ICD-10-PCS; 2019-10-16)
PROC: B2111ZZ Fluoroscopy of Multiple Coronary Arteries using Low Osmolar Contrast (ICD-10-PCS; 2019-10-16)
PROC: B2151ZZ Fluoroscopy of Left Heart using Low Osmolar Contrast (ICD-10-PCS; 2019-10-16)
DX: I21.4 Non-ST elevation (NSTEMI) myocardial infarction (principal); I49.01 Ventricular fibrillation; N17.0 Acute kidney failure with tubular necrosis; I50.42 Chronic combined systolic (congestive) and diastolic (congestive) heart failure; I47.2 Ventricular tachycardia; F17.210 Nicotine dependence, cigarettes, uncomplicated; I11.0 Hypertensive heart disease with heart failure; G90.9 Disorder of the autonomic nervous system, unspecified; E78.5 Hyperlipidemia, unspecified; E78.00 Pure hypercholesterolemia, unspecified; I25.10 Atherosclerotic heart disease of native coronary artery without angina pectoris; J44.9 Chronic obstructive pulmonary disease, unspecified; I35.8 Other nonrheumatic aortic valve disorders; I48.0 Paroxysmal atrial fibrillation; I25.5 Ischemic cardiomyopathy; I37.1 Nonrheumatic pulmonary valve insufficiency; W18.39XA Other fall on same level, initial encounter; I25.2 Old myocardial infarction; Z85.46 Personal history of malignant neoplasm of prostate; Z86.79 Personal history of other diseases of the circulatory system; Z79.899 Other long term (current) drug therapy; Z95.5 Presence of coronary angioplasty implant and graft; Z95.810 Presence of automatic (implantable) cardiac defibrillator; Z88.8 Allergy status to other drugs, medicaments and biological substances; Y93.89 Activity, other specified; Y92.89 Other specified places as the place of occurrence of the external cause; Y99.8 Other external cause status
CPT/HCPCS: 36415; 71045; 80048; 80053; 81001; 83735; 84484; 85025; 85520; 87086; 93005; 93306; G0378; J1644; J2250; J3010; Q0162; J0282; J7030

== ENCOUNTER 2019-11-10 17:31 | Inpatient (IN) | payer BC, MEDICARE ==
[~2019-11-10] VITALS: Ht 167.6 cm; Wt 64.1 kg
[~2019-11-10 17:31] MED LIST changes: +CAPT12.52 PO
--- NOTE | 2019-11-10 18:50 | NUR ---
Pacemaker being interogated by this RN Now, pt here for palpitations and feeling like his heart was racing again. Pt recently in a hospital in [facility] and was told his heart rate was fluctuating. Pt connected to monitor. Pt reports that he feels better now but wants to make sure he is okay. Pt denies trauma. Pt reports no chest pain at this time. Awaiting interogation results.
--- NOTE | 2019-11-10 18:50 | NUR ---
REPORT FROM MICK POE ASSUMING CARE OF PT
[2019-11-10] MEDS ORDERED: SODIUM CHLORIDE FLUSH 10ML SYR IVF ONE (19:30)
--- NOTE | 2019-11-10 19:30 | NUR ---
MD AT BEDSIDE TO ASSESS PT AND DISCUSS POC
[2019-11-10 19:45] LABS: BASOPHILS # (AUTO) 0.06 x10^3/uL (0-0.1); BASOPHILS % (AUTO) 1 % (0-1); EOSINOPHILS # (AUTO) 0.33 x10^3/uL (0-0.4); EOSINOPHILS % (AUTO) 4 % (1-7); LYMPHOCYTES # (AUTO) 1.58 x10^3/uL (1-3.4); LYMPHOCYTES % (AUTO) 20 % (22-44); MD NO; MEAN CORPUSCULAR HEMOGLOBIN 31.4 pg (27.5-34.5); MEAN CORPUSCULAR HGB CONC 32.6 g/dL (33.2-36.2); MEAN CORPUSCULAR VOLUME 96.2 fL (81-97); MEAN PLATELET VOLUME 8.9 fL (7.4-10.4); MONOCYTES # (AUTO) 0.92 x10^3/uL (0.2-0.8); MONOCYTES % (AUTO) 12 % (2-9); NEUTROPHILS # (AUTO) 5.15 x10^3/uL (1.8-6.8); NEUTROPHILS % (AUTO) 64 % (42-75); PLATELET COUNT 197 x10^3/uL (130-400); RED BLOOD COUNT 4.58 x10^6/uL (4.38-5.82); RED CELL DISTRIBUTION WIDTH 13.6 % (9.4-14.8)
--- NOTE | 2019-11-10 19:45 | NUR ---
XRAY AT BEDSIDE
--- NOTE | 2019-11-10 19:50 | NUR ---
PACER INTERROGATION DEVICE RESTARTED IT APPEARS TO BE STUCK IN BETWEEN PROCESSESS.
[2019-11-10 19:53] LABS: INTERNATIONAL NORMALIZED RATIO 1.01 (0.93-1.1); PROTHROMBIN TIME 10.7 Seconds (9.6-11.5)
[2019-11-10 19:56] LABS: ALBUMIN 3.6 g/dL (3.4-5.0); ANION GAP 4 mmol/L (5-15); CALCIUM 8.8 mg/dL (8.5-10.1); CHLORIDE 110 mmol/L (98-107)
--- NOTE | 2019-11-10 19:58 | NUR ---
PACER INTERROGATION COMPLETE
[2019-11-10 20:01] LABS: ALANINE AMINOTRANSFERASE 16 U/L (12-78); ALKALINE PHOSPHATASE 77 U/L (45-117); BILIRUBIN,TOTAL 0.6 mg/dL (0.2-1.0); CREATININE 1.41 mg/dL (0.7-1.3); TROPONIN I < 0.015 ng/mL (0.000-0.045)
--- NOTE | 2019-11-10 20:28 | NUR ---
SYDNEEQ SENT TO PHARMACY FOR MEDICATIONS AT THIS TIME
[2019-11-10] MEDS ORDERED: AMIODARONE 150 MG in DEXTROSE 5% 100 ML IV ONE (20:30)
[2019-11-10] MEDS ORDERED: AMIODARONE 450 MG in DEXTROSE 5% 241 ML IV PRN (21:00)
--- NOTE | 2019-11-10 21:11 | NUR ---
hospitalist at bedside to assess pt
[2019-11-10] MEDS: FILTER 0.22 MICRON IV SCH (21:27)
--- NOTE | 2019-11-10 21:27 | NUR ---
new iv placed amio bolus started.
--- NOTE | 2019-11-10 21:40 | NUR ---
SONIA MONTES STARTED NADN
--- NOTE | 2019-11-10 22:50 | NUR ---
REPORT TO FLOOR RN. PT READY TO GO UPSTAIRS
--- NOTE | 2019-11-10 22:56 | NUR ---
ADITIONAL PIV STARTED
[2019-11-10 23:11] VITALS: BP 112/67
[2019-11-11 02:45] VITALS: BP 92/50
[2019-11-11] MEDS: FILTER 0.22 MICRON IV SCH ×2 (05:37→21:21)
[2019-11-11] MEDS: AMIODARONE 450 MG in DEXTROSE 5% 241 ML IV PRN ×2 (05:37→21:21)
[2019-11-11 05:41] VITALS: BP 109/56
[2019-11-11 06:19] LABS: BASOPHILS # (AUTO) 0.14 x10^3/uL (0-0.1); BASOPHILS % (AUTO) 2 % (0-1); EOSINOPHILS # (AUTO) 0.38 x10^3/uL (0-0.4); EOSINOPHILS % (AUTO) 5 % (1-7); LYMPHOCYTES # (AUTO) 1.46 x10^3/uL (1-3.4); LYMPHOCYTES % (AUTO) 21 % (22-44); MD NO; MEAN CORPUSCULAR HEMOGLOBIN 31.6 pg (27.5-34.5); MEAN CORPUSCULAR HGB CONC 32.8 g/dL (33.2-36.2); MEAN CORPUSCULAR VOLUME 96.2 fL (81-97); MEAN PLATELET VOLUME 8.3 fL (7.4-10.4); MONOCYTES % (AUTO) 13 % (2-9); NEUTROPHILS # (AUTO) 4.25 x10^3/uL (1.8-6.8); NEUTROPHILS % (AUTO) 60 % (42-75); PLATELET COUNT 172 x10^3/uL (130-400); RED BLOOD COUNT 4.36 x10^6/uL (4.38-5.82); RED CELL DISTRIBUTION WIDTH 13.5 % (9.4-14.8)
[2019-11-11 06:30] LABS: ANION GAP 6 mmol/L (5-15); CALCIUM 8.5 mg/dL (8.5-10.1); CHLORIDE 110 mmol/L (98-107); CREATININE 1.15 mg/dL (0.7-1.3)
[2019-11-11 06:34] LABS: TROPONIN I < 0.015 ng/mL (0.000-0.045)
[2019-11-11 06:44] VITALS: BP 128/56
[2019-11-11] MEDS: CLOPIDOGREL 75 MG TABLET PO SCH (07:58)
[2019-11-11] MEDS: SPIRONOLACTONE 25 MG TABLET PO SCH (07:58)
[2019-11-11] MEDS: METOPROLOL SUCCINATE 50 MG TAB.ER.24H PO SCH (07:58)
[2019-11-11] MEDS: MEXILETINE 150 MG CAPSULE PO SCH ×2 (10:47→18:03)
[2019-11-11] MEDS ORDERED: SODIUM CHLORIDE 0.9% 1,000 ML IV SCH (11:30)
[2019-11-11 12:59] VITALS: BP 111/66
[2019-11-11 21:11] VITALS: BP 118/70
[2019-11-11] MEDS: ATORVASTATIN 40 MG TABLET PO SCH (21:19)
[2019-11-12 02:54] VITALS: BP 98/61
[2019-11-12] MEDS: MEXILETINE 150 MG CAPSULE PO SCH ×3 (02:58→18:33)
[2019-11-12 07:07] VITALS: BP 110/67
[2019-11-12] MEDS ORDERED: REGADENOSON 0.4 MG/5 ML SYRINGE ONE (08:56)
[2019-11-12] MEDS: METOPROLOL SUCCINATE 50 MG TAB.ER.24H PO SCH (10:31)
[2019-11-12] MEDS: CLOPIDOGREL 75 MG TABLET PO SCH (10:31)
[2019-11-12] MEDS: SPIRONOLACTONE 25 MG TABLET PO SCH (10:31)
[2019-11-12] MEDS: AMIODARONE 200 MG TABLET PO SCH (10:47)
[2019-11-12 13:01] VITALS: BP 107/69
[2019-11-12 20:30] VITALS: BP 112/68
[2019-11-12] MEDS: ATORVASTATIN 40 MG TABLET PO SCH (20:33)
[2019-11-12] MEDS: CAPTOPRIL 12.5 MG TABLET PO SCH (20:34)
[2019-11-13 00:49] VITALS: BP 94/52
[2019-11-13] MEDS: MEXILETINE 150 MG CAPSULE PO SCH ×2 (02:06→13:17)
[2019-11-13 07:07] VITALS: BP 103/65
[2019-11-13] MEDS: CLOPIDOGREL 75 MG TABLET PO SCH (08:55)
[2019-11-13] MEDS: SPIRONOLACTONE 25 MG TABLET PO SCH (08:55)
[2019-11-13] MEDS: METOPROLOL SUCCINATE 50 MG TAB.ER.24H PO SCH (08:55)
[2019-11-13] MEDS: CAPTOPRIL 12.5 MG TABLET PO SCH (08:56)
[2019-11-13] MEDS: AMIODARONE 200 MG TABLET PO SCH (08:56)
[2019-11-13] MEDS ORDERED: MEXI150C PO (09:17)
[2019-11-13 12:48] VITALS: BP 100/51
== END 2019-11-13 14:20 | disposition home or self-care (01) | DRG 682 ==
LOC: ED 20:34 → EDIP 21:02 → 5SO 22:59
PROVIDERS: ADMIT Internal Medicine; ATTEND Hospitalist
DX: N17.9 Acute kidney failure, unspecified (principal); I50.43 Acute on chronic combined systolic (congestive) and diastolic (congestive) heart failure; I47.2 Ventricular tachycardia; I11.0 Hypertensive heart disease with heart failure; E78.00 Pure hypercholesterolemia, unspecified; E78.5 Hyperlipidemia, unspecified; F17.200 Nicotine dependence, unspecified, uncomplicated; I25.10 Atherosclerotic heart disease of native coronary artery without angina pectoris; I25.5 Ischemic cardiomyopathy; I25.82 Chronic total occlusion of coronary artery; I37.1 Nonrheumatic pulmonary valve insufficiency; I48.0 Paroxysmal atrial fibrillation; J44.9 Chronic obstructive pulmonary disease, unspecified; I25.2 Old myocardial infarction; Z79.899 Other long term (current) drug therapy; Z79.02 Long term (current) use of antithrombotics/antiplatelets; Z82.49 Family history of ischemic heart disease and other diseases of the circulatory system; Z85.46 Personal history of malignant neoplasm of prostate; Z86.74 Personal history of sudden cardiac arrest; Z86.79 Personal history of other diseases of the circulatory system; Z95.5 Presence of coronary angioplasty implant and graft; Z95.810 Presence of automatic (implantable) cardiac defibrillator; Z88.8 Allergy status to other drugs, medicaments and biological substances
CPT/HCPCS: 36415; 71045; 78452; 80048; 80053; 83735; 84443; 84484; 85025; 85610; 85730; 93005; 93017; 96374; G0378; J2785; J7060; A9502; J0282; J7030

== ENCOUNTER → 2020-04-01 | Outpatient (CLI) | payer BC, MEDICARE ==
[~2020-04-01] MED LIST changes: +MEXI150C PO
== END | disposition home or self-care (01) ==
LOC: ROC 07:51
PROVIDERS: ATTEND Radiology Radiation Oncology
DX: Z08 Encounter for follow-up examination after completed treatment for malignant neoplasm (principal); Z85.46 Personal history of malignant neoplasm of prostate
CPT/HCPCS: G0463

== ENCOUNTER 2020-06-03 07:23 | Outpatient (CLI) | payer MEDICARE ==
[~2020-06-03 07:23] MED LIST changes: -NICO-487 TD; +NICO-587 TD; -OXYC-302 PO; +OXYC1TAB14 PO
== END 2020-06-03 23:59 | disposition home or self-care (01) ==
LOC: ROC 07:23
PROVIDERS: ATTEND Radiology Radiation Oncology
DX: C61 Malignant neoplasm of prostate (principal)
CPT/HCPCS: G2012; G2251

== ENCOUNTER → 2020-06-27 | Outpatient (CLI) | payer MEDICARE, BC ==
[2020-06-27 12:15] LABS: BASOPHILS % (AUTO) 0 % (0-1); EOSINOPHILS % (AUTO) 5 % (1-7); LYMPHOCYTES % (AUTO) 7 % (22-44); MEAN CORPUSCULAR HEMOGLOBIN 32.2 pg (27.5-34.5); MEAN CORPUSCULAR HGB CONC 33.9 g/dL (33.2-36.2); MEAN PLATELET VOLUME 9.2 fL (7.4-10.4); MONOCYTES % (AUTO) 13 % (2-9); NEUTROPHILS % (AUTO) 75 % (42-75); PLATELET COUNT 140 x10^3/uL (130-400); RED BLOOD COUNT 4.74 x10^6/uL (4.38-5.82); RED CELL DISTRIBUTION WIDTH 13.7 % (9.4-14.8)
[2020-06-27 12:18] LABS: MD NO
[2020-06-27 12:32] LABS: BILIRUBIN, DIRECT 0.2 mg/dL (0.1-0.2); BILIRUBIN,INDIRECT 0.2 mg/dL (0.0-2.0); BILIRUBIN,TOTAL 0.4 mg/dL (0.2-1.0); TOTAL PROTEIN 7.9 g/dL (6.4-8.2)
== END | disposition home or self-care (01) ==
LOC: LAB 11:49
PROVIDERS: ATTEND Radiology Radiation Oncology
DX: R94.5 Abnormal results of liver function studies (principal); D61.818 Other pancytopenia
CPT/HCPCS: 36415; 80076; 85025

== ENCOUNTER → 2020-11-07 | Outpatient (CLI) | payer MEDICARE ==
[~2020-11-07] MED LIST changes: +LEUPROLIDE (ELIGARD) 22.5 MG SYR SQ ONE; +SULF-23 PO; -SULF1TAB24 PO
== END | disposition home or self-care (01) ==
LOC: ROC 07:52
PROVIDERS: ATTEND Radiology Radiation Oncology
DX: Z51.11 Encounter for antineoplastic chemotherapy (principal); C61 Malignant neoplasm of prostate
CPT/HCPCS: 96402; G0463; J9217

== ENCOUNTER → 2021-02-27 | Outpatient (CLI) | payer MEDICARE ==
[~2021-02-27] MED LIST changes: +OXYC1TAB12 PO; -OXYC1TAB14 PO
== END | disposition home or self-care (01) ==
LOC: ROC 13:03
PROVIDERS: ATTEND Radiology Radiation Oncology
DX: Z51.11 Encounter for antineoplastic chemotherapy (principal); C61 Malignant neoplasm of prostate
CPT/HCPCS: 96402; G0463; J9217